=== PATIENT | female | born 1980 | race Caucasian/White ===

== ENCOUNTER 2017-02-20 15:51 | Outpatient (CLI) | payer MEDICAID ==
[~2017-02-20] VITALS: Ht 147.3 cm; Wt 58.4 kg
[~2017-02-20 15:51] MED LIST: FERR240T9; NITR-58 PO; PNV1TABL12
[2017-02-20 16:42] VITALS: BP 107/60; PULSE 91; RESP 18; Ht 147.3 cm; Wt 58.4 kg
[2017-02-20] MEDS ORDERED: TERBUTALINE 1 MG/ML INJ SC PRN (17:00)
[2017-02-20] MEDS ORDERED: LACTATED RINGER'S 1,000 ML IV* SCH (17:00)
--- NOTE | 2017-02-20 17:49 | RADRPT ---
PROCEDURE: OB ultrasound CLINICAL INDICATION: labor TECHNIQUE: Multiple transverse and longitudinal OB images of the pelvis were obtained. The images were reviewed on a high-resolution PACS workstation. COMPARISON: None FINDINGS: A single live intrauterine is seen. The presentation is vertex. The placenta is grade 1/2 and is right posterior and fundal in location. The cervix is closed. No evidence of funneling is se en. The cervix length is 4.6 cm. The heart rate is 151 beats per minute. IMPRESSION: Cervix length = 4.6 cm. RPTAT: HPNM Physician Ángel Date Time Electronically viewed and signed by Physician Ángel on 02/20/2017 17:49 /
--- NOTE | 2017-02-20 19:00 | QN ---
Documentation Comment 36 y/o female G 4 P2 at 32 weeks sent in from antepartum testing unit because of persistent U/Cs after hydration ans SQ terbutaline contractions subsided cervical length >4cm will follow out patient and place patient on bed rest ALEX BRANNON MD Feb 20, 2017 19:00
== END 2017-02-20 19:23 | disposition home or self-care (01) ==
LOC: OBT 15:51 → L-D 15:51 → OBT 19:23
PROVIDERS: ATTEND Obstetrics & Gynecology
DX: O62.9 Abnormality of forces of labor, unspecified (principal); Z3A.32 32 weeks gestation of pregnancy
CPT/HCPCS: 36415; 76817; 96360; 96361; 96372; J3105; J7120; Z7500; G0463

== ENCOUNTER 2017-04-04 14:20 | Inpatient (IN) | payer MEDICAID ==
[~2017-04-04] VITALS: Ht 147.3 cm; Wt 61.4 kg
[2017-04-04 15:11] VITALS: BP 101/58; PULSE 75; RESP 18; Ht 147.3 cm; Wt 61.4 kg
--- NOTE | 2017-04-04 15:50 | RADRPT ---
PROCEDURE: US OB biophysical profile. CLINICAL INDICATION: decreased movements TECHNIQUE: Multiple sonographic images of the pelvis were obtained. The images were reviewed on a PACS workstation. COMPARISON: No prior studies are available for comparison. FINDINGS: There is a single viable intrauterine gestation. Cardiac activity is present with 120 beats per min carrol. There is a vertex presentation. The placenta is fundal. There is no evidence of placental abruption. There is a slightly decreased amount of amniotic fluid with an ROSELINE = 7.9 cm. Biophysical profile: movement 2/2 tone 2/2. breathing 2/2 ROSELINE 2/2 Total 06/05 RPTAT: AA . IMPRESSION: Normal biophysical profile. ROSELINE measures 7.9 cm. . .Luciano Sheehan MD, MD Date Time Electronically viewed and signed by .Luciano Sheehan MD, MD on 04/04/2017 15:50 .S/
[2017-04-04] MEDS ORDERED: LACTATED RINGER'S 1,000 ML IV PRN (16:00)
[2017-04-04] MEDS ORDERED: LACTATED RINGER'S 1,000 ML IV ONE (16:00)
[2017-04-04 17:53] LABS: ADD SCAN DIFF NO
[2017-04-04 17:56] LABS: BASOPHILS % 0.2 % (0.0-2.0); EOSINOPHILS # 0.1 10^3/ul (0.0-0.5); EOSINOPHILS % 0.5 % (0.0-7.0); HEMATOCRIT 34.9 % (37.0-47.0); HEMOGLOBIN 12.4 g/dl (12.0-16.0); MEAN CORPUSCULAR HEMOGLOBIN 32.6 pg (29.0-33.0); MEAN CORPUSCULAR HGB CONC 35.5 g/dl (32.0-37.0); MEAN CORPUSCULAR VOLUME 91.8 fl (82.0-101.0); MEAN PLATELET VOLUME 10.5 fl (7.4-10.4); MONOCYTE # 0.6 10^3/ul (0.3-0.9); MONOCYTES % 6.2 % (0.0-11.0); NEUTROPHIL # 6.8 10^3/ul (1.6-7.5); NEUTROPHILS % 70.5 % (39.0-77.0); PLATELET COUNT 157 10^3/UL (140-415); RED CELL DISTRIBUTION WIDTH 14.3 % (11.5-14.5); WHITE BLOOD COUNT 9.6 10^3/ul (4.8-10.8)
[2017-04-04] MEDS ORDERED: CARBOPROST 250 MCG INJ IM PRN ×2 (18:00→23:30)
[2017-04-04] MEDS ORDERED: METHYLERGONOVINE 0.2 MG INJ IM PRN ×2 (18:00→23:30)
[2017-04-04] MEDS ORDERED: OXYTOCIN 30 UNITS/LR 500 ML IV SCH (18:00)
[2017-04-04] MEDS ORDERED: OXYTOCIN 30 UNITS/LR 500 ML IV PRN ×2 (18:00→23:30)
[2017-04-04] MEDS ORDERED: OXYTOCIN 30 UNITS/LR 500 ML IVPB ONE (18:00)
[2017-04-04] MEDS ORDERED: MISOPROSTOL 200 MCG TAB PR PRN ×2 (18:00→23:30)
[2017-04-04] MEDS ORDERED: CEFAZOLIN 2 GM/50 ML (PMX) 50 ML IV PRN (18:00)
[2017-04-04 18:11] LABS: INR 0.98
[2017-04-04 18:12] LABS: PARTIAL THROMBOPLASTIN TIME 27.2 Sec (25.0-35.0)
[2017-04-04] MEDS ORDERED: FENTAnyl 50 MCG/ML VIAL ONE (18:57)
[2017-04-04] MEDS ORDERED: DEXAMETHASONE 4 MG/ML 1 ML INJ ONE (18:58)
[2017-04-04] MEDS ORDERED: ONDANSETRON 4 MG INJ ONE (18:58)
[2017-04-04] MEDS ORDERED: PHENYLephrine (100 MCG/ML) 5ML SYG ONE ×3 (18:58→20:05)
[2017-04-04] MEDS ORDERED: morphine SULFATE/PF (10 MG/10 ML) INJ ONE (18:58)
[2017-04-04] MEDS ORDERED: MIDAZOLAM 1 MG/ML 2 ML INJ ONE (19:30)
--- NOTE | 2017-04-04 20:11 | HP ---
Date/Time of Note Date/Time of Note DATE: 04/04/17 TIME: 20:08 OB - History Hx of Present Free Text/Dictation 37 y/o female admitted with uterine contractions at 38+ weeks Last Menstrual Period: Jul 01, 2016 Estimated Due Date: Apr 16, 2017 : 4 Para: 2 Spontaneous : 1 Care: Good Care Ultrasounds: Normal mid trimester US Past Family/Social History * Past Medical, Surgical, Family and Obstetric Histories reviewed from chart. Blood Type: A+ Rubella: immune RPR/VDRL: Negative GBS Status: Negative HBsAG: Negative OB Admission Exam Vital Signs Vital Signs Vital Signs Date Time Temp Pulse Resp B/P Pulse Ox O2 Delivery O2 Flow Rate FiO2 04/04/17 15:11 98.3 75 18 101/58 Physical Exam HEENT: WNL Heart: Rhythm Normal Lungs: Clear, Equal Abdomen: WNL Extremities: Normal Reflexes: Normal Cervical Dilatation: None Effacement: 0% Station: -3 Membranes: Intact Heart Rate: 130's Accelerations: Accelerations Present Decelerations: No Decelerations Varibility: Marked Contractions on Admission: < 5 Minutes Apart Date/Time Contractions Began: 04/14/2017 0600 AM Frequency of Contractions: Q5 Duration: >60 seconds Intensity: Mild Last 72 hours Lab Results CBC & BMP 04/04/17 16:15 OB Assessment/Plan Other Assessment: term gestation previous C/S X 2 labor pains desires sterilization Other plan: repeat C/S + BTL ALEX BRANNON MD Apr 04, 2017 20:11
--- NOTE | 2017-04-04 20:13 | OPR ---
Operative Report Planned Procedure Procedure date Apr 04, 2017 Procedure(s) repeat C/S + BTL Performed by: ALEX BRANNON MD Assisting provider: RODY RIBERA MD Anesthesiologist: CONSTANCE QUINTERO DO Pre-procedure diagnosis term gestation previous C/S X 2 labor pains desired sterilization Anesthesia Type: spinal Procedure Description Under satisfactory anaesthesia a Pfannenstiel incision was made two fingerbreadth above and parallel to the symphysis of pubis around the previous scar and previous scar was removed Incision was extended laterally to the border of the Recti muscles on either sides. Incision was carried down with sharp and blunt dissection until fascia was reached. Anterior Recti muscle fascia was incised in mid portion and incision extended laterally to the border of skin incision. Fascia was mobilized from muscle superiorly and Recti muscles were from midline using sharp and blunt dissection. Peritoneum was visualized; Avoiding bowel and bladder it was incised . Incision was extended superiorly and inferiorly. Bladder blade was placed. Posterior peritoneum covering the lower segment of the uterus and lower segment of the uterus were incised.Low transverse uterine incision was made on lower segment of the uterus. Incision extended laterally to the border of Round Lig. on either sides and baby was delivered from OT. position . Amniotic fluid appeared clear. Cord blood was obtained and cord had 3 vessels . Placenta was delivered spontaneously and appeared intact and complete. Intrauterine cavity was rubbed with a laparotomy sponge. Uterine incision was closed in 2 layers using running stitches of No1 Monocryl. Hemostasis appeared secure. Ovaries and Fallopian tubes were within normal limits. Bilateral Tubal Ligation was performed by following procedure: R fallopian tube was raised in mid portion; a Liliam clamp was placed below the fimbriae extending to proximal portion of the fallopian tube. Another clamp was placed parallel to the first and after incising the fallopian tube the stump was sutured using 0 Vicryl stitch. Hemostasis was secure . Same procedure was done on fallopian tube on the opposite side. Hemostasis appeared to be secure on ligated sites of either fallopian tubes. Announcing needle, lap sponge and instrument count to be correct abdomen was closed in layers as follows: Peritoneum and Recti muscles with running stitches of 20 Vicryl. Fascia with running stitch of No 1 PDS. Subcutaneous tissue with running stitches of 20 Chromic and skin was closed using mei. Patient tolerated the procedure well and was transferred to [facility] in good condition. Post-Procedure Post-procedure diagnosis repeat C/S + BTL Findings: Live Baby Specimen removed: Yes Specimen description segments of R and L fallopian tubes Complications: None Pt Condition post procedure: stable Disposition: PACU Physician Certification I, the undersigned physician, hereby certify that I have discussed the procedure described in this consent form with this patient (or the patient's legal investment representative), including: * The risk and benefits of the procedure; * Any adverse reactions that may reasonably be expected to occur; * Any alternative efficacious methods of treatment which may be medically viable ; * The potential problems that may occur during recuperation; * Potential for blood transfusion and associated risks/benefits; and * Any research or economic interest I may have regarding this treatment. I further certify that the patient/legally responsible person was encouraged to ask question and that all questions were answered. ALEX BRANNON MD Apr 04, 2017 20:13
[2017-04-04] MEDS ORDERED: NALOXONE (0.4 MG/ML) INJ IV PRN (20:30)
[2017-04-04] MEDS ORDERED: ZOLPIDEM 5 MG TAB PO PRN (20:30)
[2017-04-04] MEDS ORDERED: HYDROmorphONE 1 MG/ML SYG IV PRN ×2 (20:30)
[2017-04-04] MEDS ORDERED: DIPHENHYDRAMINE 50 MG INJ IV PRN (20:30)
[2017-04-04] MEDS ORDERED: PROCHLORPERAZINE 10 MG INJ IV PRN (20:30)
[2017-04-04] MEDS: ONDANSETRON 4 MG INJ IV PRN (20:48)
[2017-04-04] MEDS: KETOROLAC 30 MG INJ IV PRN (21:27)
[2017-04-04 23:15] VITALS: BP 121/62; PULSE 65; RESP 18
[2017-04-04] MEDS ORDERED: LANOLIN 7 GM TUBE TOP PRN (23:30)
[2017-04-04] MEDS ORDERED: NA PHOSPHATE/BIPHOS 133 ML ENEMA PR PRN (23:30)
[2017-04-04] MEDS: LACTATED RINGER'S 1,000 ML IV SCH (23:59)
[2017-04-05] MEDS: ONDANSETRON 4 MG INJ IV PRN (02:59)
[2017-04-05 03:45] VITALS: BP 99/57; PULSE 63; RESP 18
[2017-04-05] MEDS: CLINDAMYCIN 300 MG CAP PO SCH ×5 (06:00→23:32)
[2017-04-05 06:38] LABS: ADD SCAN DIFF NO
[2017-04-05 06:44] LABS: BASOPHILS % 0.1 % (0.0-2.0); EOSINOPHILS % 0.1 % (0.0-7.0); HEMATOCRIT 32.7 % (37.0-47.0); HEMOGLOBIN 11.4 g/dl (12.0-16.0); LYMPHOCYTES # 1.4 10^3/ul (0.8-2.9); LYMPHOCYTES % 9.6 % (15.0-51.0); MEAN CORPUSCULAR HEMOGLOBIN 31.9 pg (29.0-33.0); MEAN CORPUSCULAR HGB CONC 34.9 g/dl (32.0-37.0); MEAN CORPUSCULAR VOLUME 91.6 fl (82.0-101.0); MEAN PLATELET VOLUME 10.2 fl (7.4-10.4); MONOCYTE # 0.7 10^3/ul (0.3-0.9); MONOCYTES % 5.1 % (0.0-11.0); NEUTROPHIL # 12.3 10^3/ul (1.6-7.5); NEUTROPHILS % 84.4 % (39.0-77.0); PLATELET COUNT 160 10^3/UL (140-415); RED BLOOD COUNT 3.57 10^6/ul (4.20-5.40); WHITE BLOOD COUNT 14.5 10^3/ul (4.8-10.8)
[2017-04-05] MEDS: CEFAZOLIN 2 GM/50 ML (PMX) 50 ML IV SCH ×3 (07:24→16:10)
[2017-04-05 07:30] VITALS: BP 102/69; PULSE 81; RESP 18
[2017-04-05] MEDS: SENNA/DOCUSATE NA (8.6MG/50MG) TAB PO SCH ×2 (09:00→20:47)
[2017-04-05] MEDS: LACTATED RINGER'S 1,000 ML IV SCH ×3 (09:42→18:36)
[2017-04-05] MEDS ORDERED: BISACODYL 10 MG SUPP PR ONE (10:30)
[2017-04-05 11:34] VITALS: BP 95/52; PULSE 75; RESP 18
--- NOTE | 2017-04-05 12:05 | PN ---
Date/Time of Note Date/Time of Note DATE: 04/05/17 TIME: 12:03 Assessment/Plan VTE Prophylaxis VTE Prophylaxis Intervention: ambulation Lines/Catheters IV Catheter Type (from Nrsg): Peripheral IV Assessment/Plan Assessment/Plan POD # 1 S/P C/S+ BTL will continue to ambulate and advance diet Subjective 24 Hr Interval Summary NO BM passing flatus Constitutional: BM, ambulates, flatus, improved, no complaints, urine output Pain Control: well controlled Exam/Review of Systems Vital Signs Vitals Vital Signs Date Time Temp Pulse Resp B/P Pulse Ox O2 Delivery O2 Flow Rate FiO2 04/05/17 11:34 98.1 75 18 95/52 Room Air 04/05/17 11:00 95 21 Intake and Output 04/04/17 04/04/17 04/05/17 15:00 23:00 07:00 Intake Total 2050 ml 50 ml Output Total 1300 ml 400 ml Balance 750 ml -350 ml Exam Free Text/Dictation Abdomen: soft bs +\ incision: covered Constitutional: alert, oriented, well developed Psych: nl mood/affect, no complaints Head: atraumatic, normocephalic Eyes: EOMI, nl conjunctiva, nl lids, nl sclera ENMT: mucosa pink and moist, nl external ears & nose, nl lips & teeth, nl nasal mucosa & septum Neck: non-tender, supple Respiratory: clear to auscultation, normal air movement Cardiovascular: nl pulses, regular rate and rhythm Gastrointestinal: nl liver, spleen, non-tender, soft Musculoskeletal: nl extremities to inspection, nl gait and stance Extremities: normal pulses Neurological: [employer] II-XII intact, nl mental status, nl speech, nl strength Skin: nl turgor, rash or lesions Lymph: nl lymph nodes Results Result Diagram: 04/05/17 0616 ALEX BRANNON MD Apr 05, 2017 12:05
--- NOTE | 2017-04-05 13:35 | PD.PPDC ---
CONDUCTOR ORCHESTRA Discharge Instruction Provider Information Physician Information 37 y/o female had repeat C/S + BTL Diagnosis Final Diagnosis: S/P C/S + BTL Condition Patient Condition: Good Diet Diet: Resume Regular Diet Activity/Restrictions Activity: February Shower Restrictions: No Exercising No Lifting Nothing in the Vagina Return to Work or School: Jun 04, 2017 Follow-up Follow-up with Physician: 3, Day/Days (in clinic for staple removal ) Return to clinic for FRUIT SPRAYER Instructions: Fever greater than 101 Chills OB Instructions: Breast Tenderness Depression Surgical Instructions: Incisional Drainage Incisional Redness ALEX BRANNON MD Apr 05, 2017 13:35
[2017-04-05] MEDS ORDERED: Oxycodone/Acetamin (5/325) PO (13:37)
[2017-04-05] MEDS ORDERED: IBUP800T25 PO (13:37)
[2017-04-05 16:00] VITALS: BP 88/52; PULSE 78; RESP 19
[2017-04-05] MEDS: KETOROLAC 30 MG INJ IV PRN (16:24)
[2017-04-05 20:00] VITALS: BP 96/59; PULSE 83; RESP 18
[2017-04-05] MEDS ORDERED: ACETAMINOPHEN/CODEINE #3 TAB PO PRN (20:30)
[2017-04-05] MEDS ORDERED: BISACODYL 10 MG SUPP PR SCH (20:55)
[2017-04-05] MEDS: IBUPROFEN 800 MG TAB PO SCH (22:02)
[2017-04-06 04:00] VITALS: BP 97/65; PULSE 80; RESP 18
[2017-04-06] MEDS: OXYCODONE/ACETAMINOPHEN (5/325) TAB PO PRN ×3 (04:48→18:08)
[2017-04-06] MEDS: CLINDAMYCIN 300 MG CAP PO SCH ×3 (05:48→18:08)
[2017-04-06] MEDS: IBUPROFEN 800 MG TAB PO SCH ×3 (05:48→21:41)
[2017-04-06] MEDS: LACTATED RINGER'S 1,000 ML IV SCH ×2 (07:13→15:13)
[2017-04-06 07:55] LABS: ADD SCAN DIFF NO
[2017-04-06 07:58] LABS: BASOPHILS % 0.3 % (0.0-2.0); EOSINOPHILS # 0.1 10^3/ul (0.0-0.5); EOSINOPHILS % 0.5 % (0.0-7.0); HEMATOCRIT 33.4 % (37.0-47.0); HEMOGLOBIN 11.4 g/dl (12.0-16.0); LYMPHOCYTES % 25.4 % (15.0-51.0); MEAN CORPUSCULAR HEMOGLOBIN 31.8 pg (29.0-33.0); MEAN CORPUSCULAR HGB CONC 34.1 g/dl (32.0-37.0); MEAN CORPUSCULAR VOLUME 93.3 fl (82.0-101.0); MEAN PLATELET VOLUME 9.9 fl (7.4-10.4); MONOCYTE # 0.8 10^3/ul (0.3-0.9); MONOCYTES % 6.4 % (0.0-11.0); NEUTROPHILS % 66.8 % (39.0-77.0); PLATELET COUNT 178 10^3/UL (140-415); RED BLOOD COUNT 3.58 10^6/ul (4.20-5.40); RED CELL DISTRIBUTION WIDTH 14.5 % (11.5-14.5); WHITE BLOOD COUNT 11.9 10^3/ul (4.8-10.8)
[2017-04-06 08:00] VITALS: BP 94/64; PULSE 79; RESP 18
[2017-04-06] MEDS: SENNA/DOCUSATE NA (8.6MG/50MG) TAB PO SCH ×2 (09:00→21:41)
[2017-04-06 16:00] VITALS: BP 94/67; PULSE 72; RESP 17
--- NOTE | 2017-04-06 16:25 | PN ---
Date/Time of Note Date/Time of Note DATE: 04/06/17 TIME: 16:22 OB Subjective Subjective Subjective had b.m no c/o OB Objective Objective Objective vss afebrile abdomen soft wound dry lochia min calf neg OB Assessment/Plan Other Assessment: s/p c/s satif#2 Other plan: discharge home in am WILLARD DELGADO MD Apr 06, 2017 16:25
--- NOTE | 2017-04-06 18:30 | DS ---
Date/Time of Note Date/Time of Note home next day DATE: 04/06/17 TIME: 18:28 Obstetrical Discharge Record Final Diagnosis Final Diagnosis: Term delivered Vaginal Delivery Obstetrical Delivery: Bilateral Tubal Ligation Section Section: Repeat Condition on Discharge Physical Assessment Last Vitals: see nurses notes Voiding: Yes Bowel Movement: Yes Breast: Soft, non-tender, Filling Fundus: Firm Abdomen and Incision: soft bs + incision healing well Episiotomy: NA Calf Tenderness: No Patient Condition: Good ALEX BRANNON MD Apr 06, 2017 18:30
--- NOTE | 2017-04-06 18:31 | DS ---
Date/Time of Note Date/Time of Note DATE: 04/06/17 TIME: 18:30 Discharge Summary Admission/Discharge Info Admit Date/Time Apr 04, 2017 at 17:35 Discharge Date/Time 04/07/2017 Final Diagnosis S/P C/S + BTL Patient Condition: Good Procedures repeat C/S + BTL Hx of Present Illness 37 y/o female had repeat C/S + BTL Hospital Course uncomplicated Home Meds Active Scripts [Oxycodone/Acetamin (5/)] 1 TAB TAB No Conflict Check, 2 TAB PO Q4H Y for PAIN LEVEL 6-10, #30 0 Refills Prov:ALEX BRANNON MD 04/05/17 Ibuprofen* (Ibuprofen*) 800 Mg Tablet, 800 MG PO Q8, #30 TAB 0 Refills Prov:ALEX BRANNON MD 04/05/17 Reported Medications Ferrous Gluconate (Iron) 1 Tab Tablet 09/30/10 Pnv Cmb#21/Iron/Folic Acid ( Complete Caplet) 1 Tab Tablet 09/30/10 Discontinued Scripts Nitrofurantoin Monohyd Macrocr* (Macrobid*) 100 Mg Capsr, 100 MG PO BID for 7 Days, CAP Prov:JOVI RODARTE 09/11/16 Primary Care Provider Care Physician No Primary Time spent on discharge: < 30 minutes Pending Labs Laboratory Tests Test 04/06/17 07:30 White Blood Count 11.910^3/ul (4.8-10.8) Red Blood Count 3.5810^6/ul (4.20-5.40) Hemoglobin 11.4g/dl (12.0-16.0) Hematocrit 33.4% (37.0-47.0) Mean Corpuscular Volume 93.3fl (82.0-101.0) Mean Corpuscular Hemoglobin 31.8pg (29.0-33.0) Mean Corpuscular Hemoglobin Concent 34.1g/dl (32.0-37.0) Red Cell Distribution Width 14.5% (11.5-14.5) Platelet Count 83345^3/UL (140-415) Mean Platelet Volume 9.9fl (7.4-10.4) Neutrophils % 66.8% (39.0-77.0) Lymphocytes % 25.4% (15.0-51.0) Monocytes % 6.4% (0.0-11.0) Eosinophils % 0.5% (0.0-7.0) Basophils % 0.3% (0.0-2.0) Nucleated Red Blood Cells % 0.0/100WBC (0.0-0.0) Neutrophils # 8.010^3/ul (1.6-7.5) Lymphocytes # 3.010^3/ul (0.8-2.9) Monocytes # 0.810^3/ul (0.3-0.9) Eosinophils # 0.110^3/ul (0.0-0.5) Basophils # 0.010^3/ul (0.0-0.1) Nucleated Red Blood Cells # 0.010^3/ul (0.0-0.0) ALEX BRANNON MD Apr 06, 2017 18:31
[2017-04-06 20:20] VITALS: BP 95/61; PULSE 75; RESP 18
[2017-04-07] MEDS: CLINDAMYCIN 300 MG CAP PO SCH ×3 (00:21→13:00)
[2017-04-07] MEDS: OXYCODONE/ACETAMINOPHEN (5/325) TAB PO PRN ×2 (00:21→09:27)
[2017-04-07 04:34] VITALS: BP 111/56; PULSE 71; RESP 18
[2017-04-07] MEDS: IBUPROFEN 800 MG TAB PO SCH ×2 (06:18→13:49)
[2017-04-07 08:00] VITALS: BP 112/68; PULSE 82; RESP 18
[2017-04-07] MEDS ORDERED: DIPHTH/TET/ACEL PERTUSS (ADULT) 0.5 ML VIAL IM* ONE (09:00)
[2017-04-07] MEDS ORDERED: MEASLES,MUMPS,RUBELLA VACCINE INJ SC* ONE (09:00)
[2017-04-07] MEDS: SENNA/DOCUSATE NA (8.6MG/50MG) TAB PO SCH (09:27)
== END 2017-04-07 14:45 | disposition home or self-care (01) | DRG 766 ==
LOC: OBT 14:20 → L-D 14:20 → OBT 17:35 → L-D 18:49 → PP1 23:14
PROVIDERS: ADMIT Obstetrics & Gynecology; ATTEND Obstetrics & Gynecology
PROC: 0UB70ZZ Excision of Bilateral Fallopian Tubes, Open Approach (ICD-10-PCS; 2017-04-04)
PROC: 10D00Z1 Extraction of Products of Conception, Low, Open Approach (ICD-10-PCS; principal; 2017-04-04 19:00)
DX: O34.211 Maternal care for low transverse scar from previous cesarean delivery (principal); Z30.2 Encounter for sterilization; Z37.0 Single live birth; Z3A.38 38 weeks gestation of pregnancy
CPT/HCPCS: 76818; 85025; 85610; 85730; 86592; 86850; 86900; 86901; 87340; 88302; 90715; 94760; 96360; 99464; G0463; J0690; J1100; J1885; J2250; J2274; J2370; J2405; J2590; J3010; J7120

== ENCOUNTER 2017-04-11 05:15 | Emergency (ER) | payer MEDICAID ==
[~2017-04-11] VITALS: Ht 152.4 cm; Wt 56.0 kg
[~2017-04-11 05:15] MED LIST changes: +IBUP800T25 PO; -NITR-58 PO; +Oxycodone/Acetamin (5/325) PO
[2017-04-11 05:37] VITALS: Ht 152.4 cm; Wt 56.0 kg
[2017-04-11 05:56] VITALS: BP 109/68; PULSE 75; RESP 20; TEMP 98.1
[2017-04-11] MEDS ORDERED: ONDANSETRON 4 MG INJ IM STA (06:24)
[2017-04-11] MEDS ORDERED: KETOROLAC 60 MG INJ IM STA (06:44)
[2017-04-11] MEDS ORDERED: MAGNESIUM CITRATE 300 ML BTL PO ONE (07:00)
[2017-04-11] MEDS ORDERED: OXYC-279 PO (07:13)
[2017-04-11] MEDS ORDERED: DOCU100C26 PO (07:13)
[2017-04-11] MEDS ORDERED: ONDA4TAB11 PO (07:36)
[2017-04-11] MEDS ORDERED: POLY17PO6 PO (07:36)
[2017-04-11] MEDS ORDERED: METO10TA92 PO (07:36)
--- NOTE | 2017-04-11 08:17 | ERD ---
ER Documentation Chief Complaint Date/Time DATE: 04/11/17 TIME: 08:14 Chief Complaint sp caesarian section 1 week ago, c/o constipation x 2 days HPI Old female had a week ago and her only complaint currently is constipation. She has not been able have a follow-up for 2 days. This also happened immediately after surgery she can have bowel movement for 2 days. The baby is healthy. Patient also has nausea with no vomiting. She has diffuse abdominal discomfort. She has no bleeding or drainage or pain at the scar site. ROS All systems reviewed and are negative except as per history of present illness. Medications Home Meds Active Scripts Polyethylene Glycol* (Miralax*) 17 Gm Powd.pack, 17 GM PO DAILY, #10 Prov:ASTRID CORONA DO 04/11/17 Metoclopramide* (Reglan*) 10 Mg Tablet, 10 MG PO Q6 Y for NAUSEA AND/OR VOMITING , #10 TAB Prov:ASTRID CORONA DO 04/11/17 Ondansetron (Zofran Odt) 4 Mg Tab.rapdis, 4 MG PO Q6, #10 Prov:ASTRID CORONA DO 04/11/17 Ibuprofen* (Ibuprofen*) 800 Mg Tablet, 800 MG PO Q8, #30 TAB 0 Refills Prov:ALEX BRANNON MD 04/05/17 Reported Medications Docusate Sodium* (Doc-Q-Lace*) 100 Mg Capsule, 100 MG PO BID Y for CONSTIPATION , CAP 04/11/17 Oxycodone HCl/Acetaminophen (Percocet 5-325 mg Tablet) 1 Each Tablet, 2 EACH PO Q4 Y for PAIN LEVEL 6-10, TAB 04/11/17 Ferrous Gluconate (Iron) 1 Tab Tablet 09/30/10 Pnv Cmb#21/Iron/Folic Acid ( Complete Caplet) 1 Tab Tablet 09/30/10 Discontinued Scripts [Oxycodone/Acetamin (5/325)] 1 TAB TAB No Conflict Check, 2 TAB PO Q4H Y for PAIN LEVEL 6-10, #30 0 Refills Prov:ALEX BRANNON MD 04/05/17 Nitrofurantoin Monohyd Macrocr* (Macrobid*) 100 Mg Capsr, 100 MG PO BID for 7 Days, CAP Prov:JOVI RODARTE 09/11/16 Allergies Allergies: Coded Allergies: No Known Allergies (Verified Allergy, Mild, 04/11/17) PMhx/Soc History of Surgery: Yes ( X 1.) Anesthesia Reaction: No Hx Neurological Disorder: No Hx Respiratory Disorders: No Hx Cardiac Disorders: No Hx Psychiatric Problems: No Hx Miscellaneous Medical Probl: Yes (DENIES OTHER MEDICAL PROBLEMS.) Hx Alcohol Use: No Hx Substance Use: No Hx Tobacco Use: No Physical Exam Vitals Vital Signs Date Time Temp Pulse Resp B/P Pulse Ox O2 Delivery O2 Flow Rate FiO2 04/11/17 05:56 98.1 75 20 109/68 96 Room Air 04/11/17 05:37 98.1 101 20 109/68 96 Physical Exam Const: [] No distress ENT: Normal External Ears, Nose and Mouth. Neck: Full range of motion..~ No meningismus. Abd: Soft, mild tenderness along the left abdomen, scar intact, healing well, no signs of infection, non distended. Normal bowel sounds Skin: No petechiae or rashes Back: No midline or flank tenderness Ext: No cyanosis, or edema Neur: Awake and alert and oriented 3, no focal deficits Psych: Normal Mood and Affect Results 24 hrs Current Medications Medications (Trade) Dose Ordered Sig/Jenny Route PRN Reason Start Time Stop Time Status Last Admin Dose Admin Ondansetron HCl (Zofran Inj) 4 mg ONCE STAT IM 04/11/17 06:24 04/11/17 06:25 DC 04/11/17 06:48 Ketorolac Tromethamine (Toradol) 60 mg ONCE STAT IM 04/11/17 06:44 04/11/17 06:45 DC 04/11/17 06:48 Magnesium Citrate (Citroma) 300 ml ONCE ONCE PO 04/11/17 07:00 04/11/17 07:01 DC 04/11/17 07:00 Procedures/MDM Constipation secondary recent surgery as well as being on [place] with no reasonable laxatives. Patient's nausea was treated with Zofran IM, she was given Toradol IM for pain. She had no pain and no nausea. She is able to tolerate a bottle of magnesium citrate. I believe at this point is appropriate for outpatient management and I have told her the importance of hydration. Primary care follow-up in 2-3 days and return precautions were given. Discharging with Shirley Person Reglan peeriod Departure Diagnosis: Primary Impression: Postoperative abdominal pain Additional Impression: Constipation Condition: Stable Patient Instructions: Constipation (Adult) Additional Instructions: Llame al doctor MAANA y julian og HELLEN PARA DENTRO DE 2-3 SIMONS.Dgale a la secretaria que nosotros le instruimos hacer esta hellen.Avise o llame si neri condicin se empeora antes de la hellen. Regresa aqui si peor o no mejor. ASTRID CORONA DO Apr 11, 2017 08:17
--- NOTE | 2017-04-11 09:24 | RADRPT ---
PROCEDURE: XR Abdomen. CLINICAL INDICATION: Abdominal pain, constipation TECHNIQUE: Single AP view of the abdomen is available for review. COMPARISON: None. FINDINGS: Mild retained fecal material is suggestive of constipation. The bowel gas pattern is otherwise unre markable. There is no evidence of obstruction. There are no abnormal calcifications overlying the ur inary tracts. The osseous structures are unremarkable. IMPRESSION: 1. Mild retained fecal material is suggestive of constipation. 2. No evidence of bowel obstruction is identified. RPTAT: HDWR .Leonid Mathis MD, MD Date Time Electronically viewed and signed by .Leonid Mathis MD, MD on 04/11/2017 09:23 .R/
== END 2017-04-11 08:15 | disposition home or self-care (01) ==
LOC: E/R 05:15
DX: O90.89 Other complications of the puerperium, not elsewhere classified (principal); K59.00 Constipation, unspecified; O99.63 Diseases of the digestive system complicating the puerperium; R10.9 Unspecified abdominal pain; R11.0 Nausea; R40.2142 Coma scale, eyes open, spontaneous, at arrival to emergency department; R40.2252 Coma scale, best verbal response, oriented, at arrival to emergency department; R40.2362 Coma scale, best motor response, obeys commands, at arrival to emergency department
CPT/HCPCS: 74010; 96372; J1885; J2405; Z7502; Z7610